=== PATIENT | male | born 1955 | race Caucasian/White ===

== ENCOUNTER → 2016-11-19 | Outpatient (CLI) | payer MEDICARE | LOC: LAB 05:52 | DX: I25.10 Atherosclerotic heart disease of native coronary artery without angina pectoris (principal); E78.5 Hyperlipidemia, unspecified | CPT/HCPCS: 36415; 80061; 80076 ==

== ENCOUNTER 2016-12-03 19:51 | Emergency (ER) | payer MEDICARE | END 2016-12-04 00:09 | disposition home or self-care (01) | LOC: ER1 19:51 | DX: M10.9 Gout, unspecified (principal); Z88.5 Allergy status to narcotic agent | CPT/HCPCS: 73630; 93005; 96372; 99283; J1885 ==

== ENCOUNTER 2020-11-22 17:01 | Emergency (ER) | payer MEDICARE ==
[~2020-11-22 17:01] MED LIST: ANTIVERT 25MG T25 MG PO; LODINE CAP 300300 MG PO; PREDNISONE 50 M50 MG PO; TYLENOL 500 MG500 MG PO; VENTOLIN HFA 66.7 GM INH; ZOFRAN ODT 4 MG4 MG PO
[2020-11-22 20:20] LABS: RED BLOOD COUNT 4.15 M/UL (4.20-5.50); WHITE BLOOD COUNT 8.5 K/UL (4.5-11.0)
[2020-11-22 21:16] LABS: BUN/CREATININE RATIO 15 (0-10)
[2020-11-22] MEDS ORDERED: HYDROCODON-ACE1 EAC4 PO (23:22)
== END 2020-11-22 23:32 | disposition home or self-care (01) ==
LOC: ER1 17:01
PROVIDERS: Physician Assistant
DX: S82.002A Unspecified fracture of left patella, initial encounter for closed fracture (principal); S90.112A Contusion of left great toe without damage to nail, initial encounter; S20.212A Contusion of left front wall of thorax, initial encounter; I12.9 Hypertensive chronic kidney disease with stage 1 through stage 4 chronic kidney disease, or unspecified chronic kidney disease; N18.9 Chronic kidney disease, unspecified; Z79.01 Long term (current) use of anticoagulants; Z79.899 Other long term (current) drug therapy; W01.0XXA Fall on same level from slipping, tripping and stumbling without subsequent striking against object, initial encounter; Y92.828 Other wilderness area as the place of occurrence of the external cause
CPT/HCPCS: 70450; 71046; 71250; 72125; 73564; 73630; 80053; 82550; 82553; 83874; 84484; 85025; 90471; 90715; 96374; 99284; J2405; Q9965